=== PATIENT | male | born 1990 | race Caucasian/White ===

== ENCOUNTER 2019-12-21 09:52 | Inpatient (IN) | payer MEDICAID ==
[2019-12-21] VITALS (9 sets, daily range): BP systolic 128–139; BP diastolic 70–108
[~2019-12-21] VITALS: Ht 182.9 cm; Wt 67.1 kg
[2019-12-21] MEDS ORDERED: LORazepam 2 MG TABLET PO PRN (13:45)
[2019-12-21] MEDS ORDERED: TUBERCULIN, PURIFIED PROTEIN DERIVATIVE 5 TU/0.1 ML SYRINGE ID ONE (13:45)
[2019-12-21] MEDS ORDERED: CloNIDine HCL 0.1 MG TABLET PO PRN (16:30)
[2019-12-21] MEDS ORDERED: DOCUSATE SODIUM 100 MG CAPSULE PO PRN (16:30)
[2019-12-21] MEDS ORDERED: ALBUTEROL SULFATE HFA 90 MCG/PUFF 8 GM INHALER IH PRN (16:30)
[2019-12-21] MEDS ORDERED: LOPERAMIDE HCL 2 MG CAPSULE PO PRN (16:30)
[2019-12-21] MEDS ORDERED: ONDANSETRON HCL 4 MG TABLET PO PRN (16:30)
[2019-12-21] MEDS ORDERED: GuaiFENesin/D-METHORPHAN [SUGAR-FREE] 200-20MG/10 ML SYRUP UDCUP PO PRN (16:30)
[2019-12-21] MEDS ORDERED: ACETAMINOPHEN 325 MG TABLET PO PRN (16:30)
[2019-12-21] MEDS ORDERED: IBUPROFEN 400 MG TABLET PO PRN (16:30)
[2019-12-21] MEDS ORDERED: NICOTINE 14 MG/24 HOUR PATCH TD PRN (16:30)
[2019-12-21] MEDS ORDERED: MAG HYDROX/AL HYDROX/SIMETH ES 30 ML SUSPENSION UDCUP PO PRN (16:30)
[2019-12-21] MEDS ORDERED: PETROLATUM,WHITE 28 GM JELLY TP PRN (16:30)
[2019-12-21] MEDS ORDERED: MAGNESIUM HYDROXIDE SUSPENSION 30 ML UDCUP PO PRN (16:30)
[2019-12-21] MEDS: ZOLPIDEM TARTRATE 10 MG TABLET PO PRN (20:35)
[2019-12-21] MEDS: LORazepam 2 MG TABLET PO PRN (22:01)
[2019-12-21] MEDS ORDERED: HALOPERIDOL LACTATE 5 MG/ML VIAL ONE (23:34)
[2019-12-21] MEDS ORDERED: LORazepam 2 MG/ML VIAL ONE (23:34)
[2019-12-21] MEDS ORDERED: DiphenhydrAMINE HCL 50 MG/ML VIAL ONE (23:34)
[2019-12-21] MEDS ORDERED: LORazepam 2 MG/ML VIAL IM ONE (23:45)
[2019-12-21] MEDS ORDERED: DiphenhydrAMINE HCL 50 MG/ML VIAL IM ONE (23:45)
[2019-12-21] MEDS ORDERED: HALOPERIDOL LACTATE 5 MG/ML VIAL IM ONE (23:45)
[2019-12-22] VITALS (7 sets, daily range): BP systolic 123–138; BP diastolic 73–92
[2019-12-22] MEDS: HALOPERIDOL 5 MG TABLET PO PRN (05:20)
[2019-12-22] MEDS: LORazepam 2 MG TABLET PO PRN (05:21)
[2019-12-22] MEDS ORDERED: LORazepam 2 MG TABLET PO PRN (07:00)
[2019-12-22 08:18] LABS: BASOPHILS % (AUTO) 0.3 % (0.0-2.0); EOSINOPHILS % (AUTO) 0.5 % (1.0-6.0); HEMATOCRIT 40.3 % (41-53); HEMOGLOBIN 13.5 g/dL (13.5-17.5); LYMPHOCYTES # (AUTO) 2.6 K/uL (1.0-4.8); LYMPHOCYTES % (AUTO) 17.8 % (22.0-44.0); MEAN CORPUSCULAR HGB CONC 33.5 G/dL (31.0-37.0); MEAN CORPUSCULAR VOLUME 96 fL (80-100); MONOCYTES # (AUTO) 1.2 K/uL (0.1-1.0); MONOCYTES % (AUTO) 8.2 % (2.0-9.0); NEUTROPHILS # (AUTO) 10.7 K/uL (1.8-7.7); NEUTROPHILS % (AUTO) 73.2 % (40.0-70.0); PLATELET COUNT (AUTO) 141 K/uL (150-450); RED BLOOD CELL COUNT(AUTO) 4.22 MIL/uL (4.50-5.90); RED CELL DISTRIBUTION WIDTH 12.9 % (11.5-14.5)
[2019-12-22] MEDS: LORazepam 2 MG TABLET PO SCH ×3 (09:00→13:00)
[2019-12-22 09:03] LABS: ALANINE AMINOTRANSFERASE 61 U/L (12-78); ALBUMIN 3.9 g/dL (3.4-5.0); ALKALINE PHOSPHATASE 60 U/L (46-116); ANION GAP 10 mmol/L (8-16); ASPARTATE AMINOTRANSFERASE 104 U/L (15-37); BILIRUBIN,TOTAL 0.9 mg/dL (0.1-1.0); CALCIUM, TOTAL 9.2 mg/dL (8.8-10.5); CARBON DIOXIDE 26 mmol/L (22-29); CHLORIDE 105 mmol/L (98-107); CHOL/HDL RATIO 1.9 (4.2-7.3); CHOLESTEROL 115 mg/dL (131-200); CREATININE 0.78 mg/dL (0.60-1.30); FREE T4 (FREE THYROXINE) 0.94 ng/dL (0.76-1.46); GLOMERULAR FILTR. RATE CALC > 60 mL/min (>60); GLUCOSE,RANDOM 133 mg/dL (70-110); HDL CHOLESTEROL 59 mg/dL (40-60); LDL CHOL (CALC.) 43 mg/dL (0-130); POTASSIUM 3.2 mmol/L (3.5-5.1); SODIUM SERUM 141 mmol/L (136-145); THYROID STIMULATING HORMONE 1.89 uIU/mL (0.36-3.74); TOTAL PROTEIN, SERUM 7.3 g/dL (6.4-8.2); TRIGLYCERIDES 67 mg/dL (15-150); UREA NITROGEN, BLOOD 9 mg/dL (7-18)
[2019-12-22 09:14] LABS: HEMOGLOBIN A1C 5.4 % (3.8-5.6)
[2019-12-22] MEDS ORDERED: ACETAMINOPHEN 325 MG TABLET PO PRN (11:00)
[2019-12-22] MEDS ORDERED: CloNIDine HCL 0.1 MG TABLET PO PRN ×2 (11:00)
[2019-12-22] MEDS ORDERED: PETROLATUM,WHITE 28 GM JELLY TP PRN ×2 (11:00)
[2019-12-22] MEDS ORDERED: GuaiFENesin/D-METHORPHAN [SUGAR-FREE] 200-20MG/10 ML SYRUP UDCUP PO PRN ×2 (11:00)
[2019-12-22] MEDS ORDERED: ALBUTEROL SULFATE HFA 90 MCG/PUFF 8 GM INHALER IH PRN ×2 (11:00)
[2019-12-22] MEDS ORDERED: ONDANSETRON HCL 4 MG TABLET PO PRN ×2 (11:00)
[2019-12-22] MEDS ORDERED: NICOTINE 14 MG/24 HOUR PATCH TD PRN ×2 (11:00)
[2019-12-22] MEDS ORDERED: DOCUSATE SODIUM 100 MG CAPSULE PO PRN ×2 (11:00)
[2019-12-22] MEDS ORDERED: IBUPROFEN 400 MG TABLET PO PRN ×2 (11:00)
[2019-12-22] MEDS ORDERED: MAG HYDROX/AL HYDROX/SIMETH ES 30 ML SUSPENSION UDCUP PO PRN (11:00)
[2019-12-22] MEDS ORDERED: MAGNESIUM HYDROXIDE SUSPENSION 30 ML UDCUP PO PRN ×2 (11:00)
[2019-12-22] MEDS ORDERED: LOPERAMIDE HCL 2 MG CAPSULE PO PRN ×2 (11:00)
[2019-12-22] MEDS ORDERED: POTASSIUM CHLORIDE 20 MEQ ER TABLET PO ONE ×2 (13:30→13:45)
[2019-12-23] VITALS (8 sets, daily range): BP systolic 114–141; BP diastolic 60–98
[2019-12-23] MEDS: ZOLPIDEM TARTRATE 10 MG TABLET PO PRN (00:22)
[2019-12-23 08:29] LABS: BASOPHILS % (AUTO) 0.3 % (0.0-2.0); EOSINOPHILS % (AUTO) 1.9 % (1.0-6.0); HEMATOCRIT 43.2 % (41-53); HEMOGLOBIN 14.3 g/dL (13.5-17.5); LYMPHOCYTES # (AUTO) 2.4 K/uL (1.0-4.8); LYMPHOCYTES % (AUTO) 24.6 % (22.0-44.0); MEAN CORPUSCULAR HEMOGLOBIN 31.6 pg (26.0-34.0); MEAN CORPUSCULAR HGB CONC 33.1 G/dL (31.0-37.0); MEAN CORPUSCULAR VOLUME 96 fL (80-100); MONOCYTES # (AUTO) 0.7 K/uL (0.1-1.0); MONOCYTES % (AUTO) 7.2 % (2.0-9.0); NEUTROPHILS # (AUTO) 6.5 K/uL (1.8-7.7); PLATELET COUNT (AUTO) 147 K/uL (150-450); RED BLOOD CELL COUNT(AUTO) 4.52 MIL/uL (4.50-5.90); RED CELL DISTRIBUTION WIDTH 13.2 % (11.5-14.5)
[2019-12-23] MEDS: ACETAMINOPHEN 325 MG TABLET PO PRN (08:35)
[2019-12-23] MEDS: LORazepam 2 MG TABLET PO SCH ×4 (08:35→21:29)
[2019-12-23 08:55] LABS: ANION GAP 11 mmol/L (8-16); CARBON DIOXIDE 26 mmol/L (22-29); CHLORIDE 106 mmol/L (98-107); CREATININE 0.71 mg/dL (0.60-1.30); GLOMERULAR FILTR. RATE CALC > 60 mL/min (>60); GLUCOSE,RANDOM 90 mg/dL (70-110); POTASSIUM 4.3 mmol/L (3.5-5.1); SODIUM SERUM 143 mmol/L (136-145); UREA NITROGEN, BLOOD 14 mg/dL (7-18)
[2019-12-23] MEDS: NICOTINE 14 MG/24 HOUR PATCH TD SCH (10:27)
[2019-12-23] MEDS: HALOPERIDOL 5 MG TABLET PO PRN (18:24)
[2019-12-23] MEDS: LORazepam 2 MG TABLET PO PRN (18:24)
[2019-12-24] VITALS (7 sets, daily range): BP systolic 105–148; BP diastolic 77–98
[2019-12-24] MEDS: LORazepam 2 MG TABLET PO PRN ×4 (05:16→23:51)
[2019-12-24] MEDS ORDERED: LORazepam 1 MG TABLET PO PRN (07:00)
[2019-12-24] MEDS: LORazepam 2 MG TABLET PO SCH ×4 (08:02→20:38)
[2019-12-24] MEDS: NICOTINE 14 MG/24 HOUR PATCH TD SCH (08:02)
[2019-12-24] MEDS ORDERED: LORazepam 1 MG TABLET PO SCH (09:00)
[2019-12-24] MEDS: HALOPERIDOL 5 MG TABLET PO PRN ×2 (14:25→16:59)
[2019-12-24] MEDS: ZOLPIDEM TARTRATE 10 MG TABLET PO PRN (23:51)
[2019-12-25 00:29] VITALS: BP 126/84
[2019-12-25 00:41] VITALS: BP 126/84
[2019-12-25] MEDS ORDERED: LORazepam 1 MG TABLET PO PRN (07:00)
[2019-12-25 08:10] VITALS: BP 105/62
[2019-12-25] MEDS: LORazepam 1 MG TABLET PO SCH ×4 (08:14→20:31)
[2019-12-25] MEDS: NICOTINE 14 MG/24 HOUR PATCH TD SCH (08:15)
[2019-12-25 10:31] VITALS: BP 105/62
[2019-12-25] MEDS: ACETAMINOPHEN 325 MG TABLET PO PRN (14:20)
[2019-12-25] MEDS: HALOPERIDOL 5 MG TABLET PO PRN ×2 (16:03→22:12)
[2019-12-25 16:14] VITALS: BP 123/76
[2019-12-25] MEDS: MAG HYDROX/AL HYDROX/SIMETH ES 30 ML SUSPENSION UDCUP PO PRN (16:57)
[2019-12-25] MEDS: ZOLPIDEM TARTRATE 10 MG TABLET PO PRN (21:21)
[2019-12-25] MEDS: LORazepam 1 MG TABLET PO PRN (22:12)
[2019-12-26 00:21] VITALS: BP 126/81
[2019-12-26] MEDS: LORazepam 1 MG TABLET PO PRN (01:28)
[2019-12-26] MEDS ORDERED: LORazepam 1 MG TABLET PO PRN (07:00)
[2019-12-26] MEDS: NICOTINE 14 MG/24 HOUR PATCH TD SCH (08:23)
[2019-12-26] MEDS: ESCITALOPRAM OXALATE 10 MG TABLET PO SCH (09:46)
[2019-12-26 13:00] VITALS: BP 132/84
[2019-12-26 16:17] VITALS: BP 132/84
[2019-12-26] MEDS: ZOLPIDEM TARTRATE 10 MG TABLET PO PRN (20:26)
[2019-12-26] MEDS ORDERED: TraZODone HCL 50 MG TABLET PO SCH (21:00)
[2019-12-26] MEDS: HALOPERIDOL 5 MG TABLET PO PRN (23:45)
[2019-12-27 00:03] VITALS: BP 141/88
[2019-12-27 00:05] VITALS: BP 141/88
[2019-12-27] MEDS: NICOTINE 14 MG/24 HOUR PATCH TD SCH (08:27)
[2019-12-27] MEDS: ESCITALOPRAM OXALATE 10 MG TABLET PO SCH (08:28)
[2019-12-27] MEDS: MAG HYDROX/AL HYDROX/SIMETH ES 30 ML SUSPENSION UDCUP PO PRN (08:29)
[2019-12-27 08:30] VITALS: BP 118/71
[2019-12-27] MEDS ORDERED: HydrOXYzine PAMOATE 50 MG CAPSULE PO PRN (09:00)
[2019-12-27] MEDS ORDERED: TRAZ-184 PO (10:46)
[2019-12-27] MEDS ORDERED: ESCI5SOL2 PO (10:47)
[2019-12-27] MEDS ORDERED: ESCI5TAB PO (10:51)
== END 2019-12-27 13:00 | disposition home or self-care (01) | DRG 751 ==
LOC: B2S 13:40 → B3A 21:56
DX: F33.2 Major depressive disorder, recurrent severe without psychotic features (principal); F29 Unspecified psychosis not due to a substance or known physiological condition; R45.851 Suicidal ideations; D72.829 Elevated white blood cell count, unspecified; Y90.8 Blood alcohol level of 240 mg/100 ml or more; F41.9 Anxiety disorder, unspecified; F15.10 Other stimulant abuse, uncomplicated; E87.6 Hypokalemia; F10.20 Alcohol dependence, uncomplicated; F12.10 Cannabis abuse, uncomplicated; Z91.5 Personal history of self-harm; Z91.14 Patient's other noncompliance with medication regimen
CPT/HCPCS: 83036; 84439; 84443; J1200; J1630; J2060